=== PATIENT | male | born 1980 | race Caucasian/White ===

== ENCOUNTER 2021-11-10 17:27 | Emergency (ER) | payer BC, SELFPAY ==
[2021-11-10 17:43] VITALS: BP 152/103; PULSE 100; RESP 20; TEMP 38.9; O2SAT 98; BMI 27.6
[2021-11-10 18:02] LABS: UTC Influenza A Antigen Negative (Negative); UTC Influenza B Antigen Negative (Negative)
--- NOTE | 2021-11-10 18:07 | HMH.EDUTC ---
[facility] [place] Clinical Impression: Viral syndrome, COVID-19 Disposition: Home, Self-Care Condition on Discharge: Good Instructions: DI for Viral Syndrome, DI for COVID-19 (Suspected or Confirmed ), Preventing the Spread of Coronavirus Discharge Instructions Additional Instructions: Drink plenty of fluids. Take tylenol or ibuprofen for pain or fever. Follow up with your regular doctor. GO TO THE ER FOR ANY WORSENING SYMPTOMS Quarantine until you know the results of your covid-19 test. Notify your school or workplace of your results and follow their instructions regarding return to work/school. The cough medication (promethazine dm) will make you drowsy, so don't drive or operate heavy machinery after taking it. Prescriptions: Promethazine/Dextromethorphan [Promethazine-Dm Syrup] 5 ml PO Q6HP PRN #240 ml PRN Reason: Cough [facility] Ibuprofen [Ibuprofen 800mg Tablet] 800 mg PO Q8HP PRN #30 tab PRN Reason: Moderate Pain Transmission Status: Received by [facility] Ondansetron [Zofran 4mg ODT] 4 mg PO Q8HP PRN #20 tab PRN Reason: Nausea Transmission Status: Received by [facility] Benzonatate [Benzonatate 100mg cap] 100 mg PO TIDP PRN #30 cap PRN Reason: Cough Transmission Status: Received by [facility] Referrals: Kan Hinton MD [Primary Care Provider] - Time of Disposition: 18:24 Medical Decision Making - Medical Records Medical records reviewed: No: I reviewed the patient's medical records. - Babar Inquiry Pt receiving controlled substance: No Vital Signs: 11/10/21 17:43 11/10/21 18:26 Temperature 102.1 F H 100 F H Temperature Source Oral Pulse Rate 89 Pulse Rate [Left] 100 H Respiratory Rate 20 20 Blood Pressure 152/103 H Blood Pressure [Right Arm] 152/103 H Blood Pressure Mean [Right Arm] 119 02 Sat by Pulse Oximetry 98 - Lab Data Lab results reviewed: Yes: I reviewed the patient's lab results. Lab Results 11/10/21 17:52: Influenza Type A Ag Negative, Influenza Type B Ag Negative Orders (Tests/Meds): ED MEDICATIONS Discontinued Medications Generic Name Dose Route Start Last Admin Trade Name Steph PRN Reason Stop Dose Admin Acetaminophen 975 mg 11/10/21 18:08 11/10/21 18:09 Acetaminophen 325mg Tab PO 11/10/21 18:09 975 mg ONCE ONE Administration ORDERS Category Date Time Status Covid-19 Nasal PCR ([facility]) Routine Lab 11/10/21 17:46 Received [facility] [place] - General Stated complaint: cOUGH,ROJAS BODY ACHES Time Seen by Provider: 11/10/21 18:07 Mode of Arrival: Ambulatory Source of Information: Patient Limitations: No Limitations Description of Symptoms (Recalled from Triage Doc. by RN): pt c/o body aches, fever, nasal drainage, and ROJAS since yesterday. pt states he took an at home covid test today and it was positive. HEENT Symptoms (Recalled from RN notes): Yes Resp Symptoms (Recalled from RN notes): Yes Skin Symptoms (Recalled from RN notes): No MS Symptoms (Recalled from RN notes): No Functional Status (Recalled from RN notes): wnl - History of Present Illness Provider Complaint: He states that he began feeling bad yesterday. He has had a fever up to 102.5, headache, dry cough, scratchy sore throat, and body aches. He denies any shortness of breath. He has not been vaccinated against covid-19. He is a diabetic, but he controls it with diet. He does not have any history of asthma or copd. He took a home covid-19 test this morning and it was positive. His work requires him to have a pcr test for confirmation. - Related Data Previous Rx's Medication Instructions Recorded Benzonatate [Benzonatate 100mg 100 mg PO TIDP PRN #30 cap 11/10/21 cap] Ibuprofen [Ibuprofen 800mg 800 mg PO Q8HP PRN #30 tab 11/10/21 Tablet] Ondansetron [Zofran 4mg ODT] 4 mg PO Q8HP PRN #20 tab 11/10/21 Promethazine/Dextromethorphan 5 ml PO Q6HP ND
[2021-11-10 18:26] VITALS: BP 152/103; PULSE 89; RESP 20; TEMP 37.7
== END 2021-11-10 18:30 | disposition home or self-care (01) ==
PROVIDERS: Emergency Provider Nurse Practitioner Family; PCP Family Medicine
DX: U07.1 COVID-19 (principal); B34.9 Viral infection, unspecified
CPT/HCPCS: 87804; 99202; C9803; G0463; U0003; U0005

== ENCOUNTER 2022-09-06 14:02 | Emergency (ER) | payer BC, SELFPAY ==
[2022-09-06 16:02] VITALS: BP 114/86; PULSE 87; RESP 19; TEMP 36.6; O2SAT 99; BMI 32.5
--- NOTE | 2022-09-06 16:35 | EXP.UTC ---
Discharge Plan Disposition Patient Disposition: Home, Self-Care Condition: Good Prescriptions Prescriptions: New ciprofloxacin-dexamethasone 0.3-0.1 % Drops,Suspension 2 drp Ear-Left BID 7 Days Qty: 5 0RF No Action promethazine-DM 120 ML syrup 5 ml PO Q6HP PRN (Reason: Cough) Qty: 240 0RF ibuprofen 800 MG tablet 800 mg PO Q8HP PRN (Reason: Moderate Pain) Qty: 30 0RF benzonatate 100 MG capsule 100 mg PO TIDP PRN (Reason: Cough) Qty: 30 0RF ondansetron 4 MG tablet,disintegrating 4 mg PO Q8HP PRN (Reason: Nausea) Qty: 20 0RF Referrals Follow up/Referrals: Addis Antonio APRN [Primary Care Provider] - See instructions Activity Restrictions/Add. Instructions Additional Instructions/Restrictions: Use the ear drops as prescribed. Take tylenol or ibuprofen for pain or fever. Follow up with your regular doctor. If your symptoms are not getting some better with in 48 to 72 hours then please follow up and have your ear rechecked. GO TO THE ER FOR ANY WORSENING SYMPTOMS Clinical Impressions Clinical Impression: Left otitis externa Instructions Patient Instructions: Otitis Externa, DI for Otitis Externa Discharge ED Provider: Alfredito Jones [facility] General Stated complaint: AO 12 FO in left ear Mode of Arrival: Ambulatory Source of Information: Patient Limitations: No Limitations Time Seen by Provider: 09/06/22 16:35 Description of Symptoms (Recalled from Triage Doc. by RN): pt comes in with c/o something in left ear since friday HEENT Symptoms (Recalled from RN notes): Yes Resp Symptoms (Recalled from RN notes): No Skin Symptoms (Recalled from RN notes): No MS Symptoms (Recalled from RN notes): No Functional Status (Recalled from RN notes): n/a History of Present Illness Provider Complaint: He states that for the past 2 days it has felt like something was in his left ear. He thinks that rust went in the ear when he was beneath his truck working on it. Related Data Previous Rx's Medication Instructions Recorded benzonatate 100 mg capsule 100 mg PO TIDP PRN Cough #30 caps 11/10/21 ibuprofen 800 mg tablet 800 mg PO Q8HP PRN Moderate Pain 11/10/21 #30 tabs ondansetron 4 mg disintegrating 4 mg PO Q8HP PRN Nausea #20 tabs 11/10/21 tablet promethazine-DM 6.25 mg-15 mg/5 mL 5 ml PO Q6HP PRN Cough #240 mL 11/10/21 oral syrup ciprofloxacin 0.3 %-dexamethasone 2 drp Ear-Left BID 7 days #5 mL 09/06/22 0.1 % ear drops,suspension Allergies Allergy/AdvReac Type Severity Reaction Status Date / Time No Known Allergies Allergy Verified 09/06/22 16:09 Worker's Comp Is this a Worker's Comp case?: No PFSH PFS Disclaimer: The information contained in this section may have been updated after the patient was seen, as this information can be updated by other users. Social History Smoking Status: Never smoker alcohol intake: never current occupational status: employed Travel in the last 8 weeks: None ROS Obtained: Yes All systems reviewed & no additional complaints except as documented Constitutional Constitutional: Denies chills and Denies fever(s) Eyes Eyes: Denies eye discharge ENT Ears, Nose, Mouth, and Throat: Denies dizziness, Reports otalgia and Denies sore throat Cardiovascular Cardiovascular: Denies chest pain Respiratory Respiratory: Denies shortness of breath, Denies chest congestion, Denies cough, Denies stridor and Denies wheezing Gastrointestinal Gastrointestingal: Denies nausea or vomiting Musculoskeletal Musculoskeletal: Reports system reviewed and no additional complaints, except as documented and Denies arthralgias Integumentary/Breasts Skin/Breast: Denies rash Neurologic Neurologic: Denies dizziness and Denies paresthesias Allergic/Immunologic Allergic/Immunologic: Denies wheezing Physical Exam General General appearance: alert and in no apparent distress Head Head exam: at
[2022-09-06 16:50] VITALS: BP 114/86; PULSE 97; RESP 19; TEMP 36.6
== END 2022-09-06 16:51 | disposition home or self-care (01) ==
PROVIDERS: Emergency Provider Nurse Practitioner Family; PCP Nurse Practitioner Family
DX: H60.92 Unspecified otitis externa, left ear (principal)
CPT/HCPCS: 99212; G0463